=== PATIENT | female | born 1930 | race Two or more races ===

== ENCOUNTER 2019-10-30 13:59 | Emergency (ER) | payer MEDICAID ==
[~2019-10-30] VITALS: Ht 152.4 cm; Wt 55.8 kg
--- NOTE | 2019-10-30 14:10 | NUR ---
CARMELLA KAPOOR 89 From Home "Mechanical Trip/fall R hip pain/shortening -gave 4zofran and 100mg Fentanyl". On room air, breathing evenly and unlabored. connected to the monitor and pulse ox. kept comfortable, will continue to monitor accordingly.
[2019-10-30 15:21] LABS: BASOPHILS % (AUTO) 0.2 % (0.0-2.0); EOSINOPHILS % (AUTO) 0.5 % (0.0-6.0); HEMATOCRIT 42 % (33-45); HEMOGLOBIN 14.2 g/dL (11.5-14.8); LYMPHOCYTES # (AUTO) 0.9 /CMM (0.8-4.8); LYMPHOCYTES % (AUTO) 10.3 % (20.0-44.0); MEAN CORPUSCULAR HGB CONC 34 g/dl (31.0-36.0); MEAN CORPUSCULAR VOLUME 94 fL (82-100); MONOCYTES # (AUTO) 0.5 /CMM (0.1-1.30); MONOCYTES % (AUTO) 5.4 % (2.0-12.0); NEUTROPHILS # (AUTO) 7.4 /CMM (1.8-8.9); NEUTROPHILS % (AUTO) 83.6 % (43.0-81.0); PLATELET COUNT (AUTO) 170 /CMM (150-450); RED BLOOD CELL COUNT(AUTO) 4.46 MIL/uL (4.0-5.2); WHITE BLOOD COUNT (AUTO) 8.9 K/uL (4.3-11.0)
[2019-10-30 15:30] LABS: CALCIUM, SERUM 9.1 mg/dL (8.5-10.1); CREATININE 0.8 mg/dL (0.6-1.3); POTASSIUM 3.9 mmol/L (3.5-5.1)
--- NOTE | 2019-10-30 15:36 | NUR ---
[facility] QUINONES CALLED. AWAITING FOR CALL BACK.
[2019-10-30] MEDS: FENTANYL PF 100MCG/2ML AMPUL IV ONE (16:05)
[2019-10-30] MEDS ORDERED: FENTANYL PF 100MCG/2ML AMPUL ONE (16:06)
--- NOTE | 2019-10-30 18:30 | NUR ---
[facility]. NO BEDS AVAILABLE.
--- NOTE | 2019-10-30 18:34 | NUR ---
FAXED INFO TO [facility] FOR COMPLEX FRACTURE.
--- NOTE | 2019-10-30 18:54 | NUR ---
[facility] CALLED BACK, NO BEDS AVAILABLE.
--- NOTE | 2019-10-30 19:18 | NUR ---
REPORT RECEIVED FROM GISELE NEWMAN FOR [facility]
--- NOTE | 2019-10-30 20:15 | NUR ---
[facility] CALLED, NO BED AVAILABLE. Addendum: 10/30/19 at 2102 by CBATACLAN [facility] CALLED FOR HIGHER LEVEL OF CARE. INFO FAXED TO [facility]
--- NOTE | 2019-10-30 21:00 | NUR ---
[facility] Transfer center called for transer. No beds available.
--- NOTE | 2019-10-30 22:29 | NUR ---
CALL FROM MYLES FRAZIER [facility]. UNABLE TO ACCEPT PT.
[2019-10-31] MEDS ORDERED: MORPHINE SULFATE INJ 4 MG/ML DISP.SYRIN ONE (03:08)
[2019-10-31] MEDS ORDERED: HYDROMORPHONE 1 MG/1 ML DISP.SYRIN ONE (03:10)
[2019-10-31] MEDS: HYDROMORPHONE INJ 0.5 MG/0.5 ML SYRINGE IM ONE (03:18)
[2019-10-31] MEDS ORDERED: HYDROMORPHONE INJ 0.5 MG/0.5 ML SYRINGE IV ONE (03:30)
--- NOTE | 2019-10-31 04:43 | NUR ---
AIME RODRÍGUEZ'S GRANDDAUGHTER [phone]
--- NOTE | 2019-10-31 04:44 | NUR ---
PT RESTING COMFORTABLY IN BED. VSS. NO ACUTE DISTRESS NOTED. WILL CONTINUE TO MONITOR
--- NOTE | 2019-10-31 06:54 | NUR ---
PT ASLEEP.VSS. NO ACUTE DISTRESS NOTED. WILL CONTINUE TO MONITOR
--- NOTE | 2019-10-31 07:19 | NUR ---
RECEIVED REPORT FROM GISELE AGUIRRE FOR [facility]. PT IS AAOX3 SPANSIH SPEAKING ONLY, NOT IN RESPIRATORY DISTRESS, V/S STABLE, KEPT RESTED AND COMFORTABLE. WILL CONTINUE TO MONITOR.
--- NOTE | 2019-10-31 08:51 | NUR ---
SPOKED TO PT'S GRAND DAUGHTER AIME AND SHE WILL BE HERE 15-20 MINS TO SPEAK TO .
--- NOTE | 2019-10-31 09:53 | NUR ---
Patient does not wish to proceed with medical care recommended by Dr. Wan. Patient given information related to possible complications, up to and including , which could occur as a result of leaving the hospital at this time. Patient verbalizes understanding of risks involved due to leaving against medical advice. Patient has signed AMA form.
[2019-10-31 09:54] VITALS: BP 135/55
== END 2019-10-31 09:55 | disposition left against medical advice (07) ==
LOC: ER 14:02
DX: S82.251A Displaced comminuted fracture of shaft of right tibia, initial encounter for closed fracture (principal); S82.451A Displaced comminuted fracture of shaft of right fibula, initial encounter for closed fracture; W01.0XXA Fall on same level from slipping, tripping and stumbling without subsequent striking against object, initial encounter; Y93.89 Activity, other specified; Y92.89 Other specified places as the place of occurrence of the external cause; Y99.8 Other external cause status
CPT/HCPCS: 29515; 36415; 51702; 73502; 73564; 73590; 80048; 85025; 85730; 96372; 96374; 99285; J1170; J3010; 87081-TC; J2270